=== PATIENT | male | born 1960 | race Caucasian/White ===

== ENCOUNTER 2017-06-14 09:38 | Emergency (ER) | payer OTHER ==
[~2017-06-14] VITALS: Ht 195.6 cm; Wt 168.0 kg
[~2017-06-14 09:38] MED LIST: ABILIFY5 MG OR; ALTACE5 MG PO; AMLODIPINE5 MG PO; Antidepressant; HYDRALAZINE25 MG PO; HYDROCHLOROT25 MG PO; KLOR-CON M2020 MEQ PO; LASIX 40 MG40 MG/TAB PO; LASIX40 MG PO; NORCO1 TA1 PO; OMEPRAZOLE10 MG PO; POTASSIUM CHLO10 MEQ PO; PRAVASTATIN20 MG PO; TOPAMAX50 MG PO; TOPROL XL PO; WELLBUTRIN SR150 MG PO; WELLBUTRIN150 M1 PO; XARELTO20 MG PO; ZOLOFT100 MG PO
[2017-06-14] MEDS ORDERED: ASPIRIN ADULT L81 M2 PO (09:58)
[2017-06-14] MEDS ORDERED: LOPRESSOR50 M1 PO (10:03)
[2017-06-14] MEDS ORDERED: NIFEDIPINE ER60 MG PO (10:07)
[2017-06-14] MEDS ORDERED: ALTACE5 MG PO (10:09)
[2017-06-14] MEDS ORDERED: DOXAZOSIN4 MG PO (10:10)
[2017-06-14] MEDS ORDERED: METFORMIN500 MG PO (10:12)
[2017-06-14 10:45] LABS: HEMOGLOBIN 10.2 g/dl (14.0-18.0); IMMATURE GRANULOCYTES 0.5 % (0.0-1.0); MEAN CELL VOLUME 74.2 fL CALC (80.0-100.0); MEAN CORPUSCULAR HGB 21.6 pG CALC (26.0-32.0); MEAN CORPUSCULAR HGB CONC 29.1 g/L CALC (32.0-36.0); NEUT# 4.98 thou/uL (1.82-7.42); RED BLOOD COUNT 4.72 mill/uL (4.70-6.10); RED CELL DISTRI WIDTH 17.2 % (11.5-15.5)
[2017-06-14 11:00] LABS: ALKALINE PHOSPHATASE 91 u/l (38-126); ANION GAP 16 (6-22 (CALC)); BILIRUBIN, TOTAL 0.8 mg/dL (0.0-1.4); BUN 24 mg/dL (9-20); BUN/CREATININE RATIO 24 (12-20 (CALC)); CARBON DIOXIDE 23 mmol/l (22-30); CHLORIDE 107 mmol/l (95-108); GFR > 60 ML/MIN (>=60 (CALC)); GFR FOR AFR.AMER. > 60 ML/MIN (>=60 (CALC)); GLUCOSE 117 mg/dL (75-110); POTASSIUM 3.9 mmol/l (3.5-5.1); SGOT/AST 21 u/l (17-59); SGPT/ALT 33 u/l (21-72); SODIUM 142 mmol/l (137-146); TOTAL PROTEIN 7.1 g/dL (6.3-8.2)
[2017-06-14 11:12] LABS: MYOGLOBIN 62 ng/mL (0 - 121)
[2017-06-14 11:50] VITALS: BP 163/84
== END 2017-06-14 11:45 | disposition home or self-care (01) | DRG 305 ==
LOC: ED 09:38
PROVIDERS: Emergency Medicine
DX: I10 Essential (primary) hypertension (principal); R00.1 Bradycardia, unspecified; F32.9 Major depressive disorder, single episode, unspecified; E78.5 Hyperlipidemia, unspecified; I48.91 Unspecified atrial fibrillation; F41.9 Anxiety disorder, unspecified

== ENCOUNTER 2019-03-12 06:04 | Emergency (ER) | payer OTHER ==
[~2019-03-12] VITALS: Ht 195.6 cm; Wt 166.4 kg
[~2019-03-12 06:04] MED LIST changes: +ASPIRIN ADULT L81 M2 PO; +DOXAZOSIN4 MG PO; +LOPRESSOR50 M1 PO; +METFORMIN500 MG PO; +NIFEDIPINE ER60 MG PO
[2019-03-12 07:02] LABS: HEMATOCRIT 32.3 % (39.0-50.0); HEMOGLOBIN 9.9 g/dl (14.0-18.0); IMMATURE GRANULOCYTES 0.7 % (0.0-5.0); MEAN CORPUSCULAR HGB 25.5 pG CALC (26.0-32.0); MEAN CORPUSCULAR HGB CONC 30.7 g/L CALC (32.0-36.0); NEUT# 8.79 thou/uL (1.82-7.42); RED BLOOD COUNT 3.88 mill/uL (4.70-6.10)
[2019-03-12 07:04] LABS: ALBUMIN 3.5 g/dL (3.2-5.0); ALKALINE PHOSPHATASE 74 u/l (38-126); ANION GAP 11 (6-22 (CALC)); BILIRUBIN, TOTAL 0.3 mg/dL (0.0-1.4); BUN 25 mg/dL (9-20); BUN/CREATININE RATIO 27 (12-20 (CALC)); CARBON DIOXIDE 25 mmol/l (22-30); CHLORIDE 104 mmol/l (95-108); CREATININE 0.9 mg/dL (0.7-1.3); GFR > 60 ML/MIN (>=60 (CALC)); GFR FOR AFR.AMER. > 60 ML/MIN (>=60 (CALC)); LIPASE 80 u/l (23-300); POTASSIUM 4.3 mmol/l (3.5-5.1); SGOT/AST 15 u/l (17-59); SODIUM 136 mmol/l (137-146); TOTAL PROTEIN 5.8 g/dL (6.3-8.2)
[2019-03-12] MEDS ORDERED: LABETALOL200 MG PO (07:04)
[2019-03-12 07:06] LABS: AMYLASE < 30 u/l (30-110)
[2019-03-12] MEDS ORDERED: SPIRONOLACTONE50 MG PO (07:06)
[2019-03-12] MEDS ORDERED: PLAVIX75 MG PO (07:06)
[2019-03-12 07:09] LABS: MEAN CELL VOLUME 83.2 fL CALC (80.0-100.0)
[2019-03-12 07:58] LABS: ACT PARTIAL THROMBO TIME 25.4 SECONDS (20.0-32.5); PROTHROMBIN TIME 10.3 SECONDS (9.0-12.5)
[2019-03-12] MEDS ORDERED: PROTONIX40 M2 PO (09:06)
[2019-03-12 09:47] VITALS: BP 137/75
[2019-03-13] MEDS ORDERED: PROTONIX40 M2 PO (15:18)
== END 2019-03-12 09:47 | disposition home or self-care (01) | DRG 378 ==
LOC: ED 06:04 → ED-I 08:20 → ED 09:47
PROVIDERS: Family Medicine
DX: K92.1 Melena (principal); J90 Pleural effusion, not elsewhere classified; D64.9 Anemia, unspecified; R10.11 Right upper quadrant pain; R10.31 Right lower quadrant pain; K43.9 Ventral hernia without obstruction or gangrene; I10 Essential (primary) hypertension; I48.91 Unspecified atrial fibrillation; Z79.01 Long term (current) use of anticoagulants; Z95.0 Presence of cardiac pacemaker; Z79.82 Long term (current) use of aspirin
CPT/HCPCS: S0164

== ENCOUNTER 2019-03-12 11:18 | Observation (INO) | payer OTHER ==
[~2019-03-12] VITALS: Ht 195.6 cm; Wt 166.5 kg
[2019-03-12] VITALS (9 sets, daily range): BP systolic 117–154; BP diastolic 72–85
[~2019-03-12 11:18] MED LIST changes: +LABETALOL200 MG PO; +PLAVIX75 MG PO; +PROTONIX40 M2 PO; +SPIRONOLACTONE50 MG PO
--- NOTE | 2019-03-12 11:40 | NUR ---
PT TO ROOM 268 VIA WHEELCHAIR. PT IS ALERT AND ORIENTED X3. ADMISSION ASSESSMENT COMPLETED AT THIS TIME. #20 STARTED X1 ATTEMPT TO RIGHT WRIST PT TOLERATED WELL. PT ORIENTED TO ROOM AND CALL LIGHT SYSTEM. CALL LIGHT IN REACH. WILL CONTINUE TO MONITOR.
--- NOTE | 2019-03-12 11:58 | NUR ---
RT INTO ROOM TO COMPLETE EKG
--- NOTE | 2019-03-12 12:00 | NUR ---
DR HOOD AT BEDSIDE TO DISCUSS PLAN OF CARE.
[2019-03-12 12:20] LABS: HEMATOCRIT 31.7 % (39.0-50.0); HEMOGLOBIN 9.7 g/dl (14.0-18.0)
--- NOTE | 2019-03-12 12:30 | NUR ---
PT TO OR VIA STRETCHER IN STABLE CONDITION.
--- NOTE | 2019-03-12 13:33 | NUR ---
DR JEREZ INTO SEE FAMILY IN PATIENT ROOM
--- NOTE | 2019-03-12 13:50 | NUR ---
PT RETURNED FROM OR VIA STRETCHER ACCOMAPNIED BY OR STAFF.
--- NOTE | 2019-03-12 13:55 | NUR ---
PT ASSISTED FROM STRETCHER TO BED WITH MINIMAL ASSISTANCE. FAMILY IN ROOM. LIQUIDS PROVIDED. CALL LIGHT IN REACH. WILL CONTIUE TO [facility].
--- NOTE | 2019-03-12 16:12 | NUR ---
PT RESTING IN BED WITH EYES CLOSED. AROUSES TO VERBAL STIMULI. RESP ARE EVEN AND UNLABORED. NO DISTRESS NOTED, CALL LIGHT IN REACH. WILL CONTINUE TO MONITOR.
[2019-03-12 19:11] LABS: HEMOGLOBIN 9.2 g/dl (14.0-18.0)
--- NOTE | 2019-03-12 19:58 | NUR ---
PT. SITTING UP ON BEDSIDE WITH NO RESP. DISTRESS NOTED; ASSESSMENT COMPLETED; IV SITE PATENT AND ORDERED IVF INFUSING; PT. C/O ABDOMINAL PAIN 06/13 AND MEDICATED WITH ORDEREDPRN TRAMADOL; WILL REASSESS; ICE PACK PROVIDED FOR BACK PAIN PER PT'S REQUEST; DECLINES HAVING ANYMORE BM'S POST PROCEDURE; DENIES WANTING SOCKS TO BE PLACED AT THIS TIME; ENCOURAGED TO CALL FOR ANY NEEDS; CALL LIGHT IS IN REACH; WILL CONTINUE TO MONITOR.
[2019-03-13 00:20] VITALS: BP 135/85
[2019-03-13 00:22] LABS: HEMATOCRIT 29.8 % (39.0-50.0)
--- NOTE | 2019-03-13 00:30 | NUR ---
PT. RESTING IN BED WATCHING TV; NO DISTRESS NOTED; DENIES NEEDS/PAIN. UPDATED WITH LATEST LAB RESULTS; DENIES HAVING ANY STOOLS; ENCOURAGED TO CALL FOR ANY NEEDS. CALL LIGHT IS IN REACH.
--- NOTE | 2019-03-13 03:37 | NUR ---
PT. RESTING IN BED ON LEFT SIDE WITH EYES CLOSED; RESP EVEN AND UNLABORED; CALL LIGHT IS IN REACH.
[2019-03-13 04:31] VITALS: BP 124/77
[2019-03-13 05:43] LABS: HEMATOCRIT 30.3 % (39.0-50.0); HEMOGLOBIN 9.1 g/dl (14.0-18.0); IMMATURE GRANULOCYTES 0.7 % (0.0-5.0); MEAN CELL VOLUME 84.6 fL CALC (80.0-100.0); MEAN CORPUSCULAR HGB 25.4 pG CALC (26.0-32.0); NEUT# 7.85 thou/uL (1.82-7.42); RED BLOOD COUNT 3.58 mill/uL (4.70-6.10); RED CELL DISTRI WIDTH 15.2 % (11.5-15.5)
[2019-03-13 05:59] LABS: ALBUMIN 3.2 g/dL (3.2-5.0); ALKALINE PHOSPHATASE 72 u/l (38-126); ANION GAP 10 (6-22 (CALC)); BILIRUBIN, TOTAL 0.3 mg/dL (0.0-1.4); BUN 21 mg/dL (9-20); BUN/CREATININE RATIO 24 (12-20 (CALC)); CARBON DIOXIDE 24 mmol/l (22-30); CHLORIDE 106 mmol/l (95-108); CREATININE 0.9 mg/dL (0.7-1.3); GFR > 60 ML/MIN (>=60 (CALC)); GFR FOR AFR.AMER. > 60 ML/MIN (>=60 (CALC)); LIPASE 87 u/l (23-300); POTASSIUM 4.1 mmol/l (3.5-5.1); SGOT/AST 16 u/l (17-59); SODIUM 136 mmol/l (137-146); TOTAL PROTEIN 5.3 g/dL (6.3-8.2)
[2019-03-13 06:11] LABS: AMYLASE < 30 u/l (30-110)
--- NOTE | 2019-03-13 06:16 | NUR ---
PT. SITTING UP IN BED WITH NO DISTRESS NOTED; PROVIDED WITH BROTH PER HIS REQUEST; DENIES FURTHER NEEDS; CALL LIGHT IS IN REACH.
--- NOTE | 2019-03-13 07:10 | NUR ---
PT REPORT RECIEVED FROM CHETNA WAGNER. PT RESTING. NO S/S OF DISTRESS. CALL LIGHT IN REACH. WILL CONTINUE TO MONITOR.
[2019-03-13 09:00] VITALS: BP 150/76
--- NOTE | 2019-03-13 09:00 | NUR ---
PT A/O X3. SPEECH IS CLEAR. RESP EVEN AND UNLABORED. LUNG SOUNDS CLEAR. BOWEL SOUNDS ACTIVE X4. STRONG RADIAL AND PEDAL PULSES. #20 LW LR @100. SITE APPEARS HEALTHY. PT HAS +1 EDEMA TO BLE AND SOME DISCOLORATION. ENCOURAGED ELEVATION. SKIN INTACT. PT DENIES ANY PAIN OR NEEDS. POC DISCUSSED. SAFETY PRECAUTIONS IN PLACE. CALL LIGHT IN REACH. WILL CONTINUE TO MONITOR.
[2019-03-13 11:08] VITALS: BP 127/81
[2019-03-13 11:59] LABS: HEMATOCRIT 31.4 % (39.0-50.0); HEMOGLOBIN 9.5 g/dl (14.0-18.0)
--- NOTE | 2019-03-13 12:42 | NUR ---
PT LYING IN BED. NO C/O PAIN OR NEEDS. CALL LIGHT IN REACH. WILL CONTINUE TO MONITOR.
[2019-03-13] MEDS ORDERED: PROTONIX40 M2 PO (15:18)
--- NOTE | 2019-03-13 15:26 | NUR ---
D/C INSTRUCTIONS DISCUSSED W/ PT. PT STATES UNDERSTANDING. IV REMOVED. CATHETER INTACT. TELE REMOVED. PT AWAITING VOLUNTEER TO BE TRANSORTED DOWNSTAIRS.
--- NOTE | 2019-03-13 15:31 | NUR ---
Discharge instructions given. Patient verbalizes understanding of same. Discharged in stable condition via Wheelchair to Home with *Other. All belongings sent with pt.
== END 2019-03-13 15:25 | disposition home or self-care (01) | DRG 378 ==
LOC: MS2 11:18
PROVIDERS: ADMIT Internal Medicine; ATTEND Internal Medicine Nephrology
PROC: 0DB68ZX Excision of Stomach, Via Natural or Artificial Opening Endoscopic, Diagnostic (ICD-10-PCS; principal; 2019-03-12)
DX: K25.4 Chronic or unspecified gastric ulcer with hemorrhage (principal); C85.19 Unspecified B-cell lymphoma, extranodal and solid organ sites; Z68.41 Body mass index [BMI] 40.0-44.9, adult; D64.9 Anemia, unspecified; I10 Essential (primary) hypertension; E11.9 Type 2 diabetes mellitus without complications; I48.2 Chronic atrial fibrillation; F41.9 Anxiety disorder, unspecified; E66.01 Morbid (severe) obesity due to excess calories; M19.90 Unspecified osteoarthritis, unspecified site; Z87.891 Personal history of nicotine dependence; Z79.1 Long term (current) use of non-steroidal anti-inflammatories (NSAID); Z95.0 Presence of cardiac pacemaker
CPT/HCPCS: S0164

== ENCOUNTER 2019-03-17 14:49 | Inpatient (IN) | payer OTHER ==
[~2019-03-17] VITALS: Ht 195.6 cm; Wt 167.0 kg
[2019-03-17 15:37] LABS: HEMOGLOBIN 8.7 g/dl (14.0-18.0); IMMATURE GRANULOCYTES 0.9 % (0.0-5.0); MEAN CELL VOLUME 84.5 fL CALC (80.0-100.0); MEAN CORPUSCULAR HGB 25.4 pG CALC (26.0-32.0); NEUT# 9.74 thou/uL (1.82-7.42); RED BLOOD COUNT 3.43 mill/uL (4.70-6.10); RED CELL DISTRI WIDTH 15.4 % (11.5-15.5)
[2019-03-17 15:47] LABS: ALBUMIN 3.5 g/dL (3.2-5.0); ALKALINE PHOSPHATASE 79 u/l (38-126); ANION GAP 14 (6-22 (CALC)); BILIRUBIN, TOTAL 0.3 mg/dL (0.0-1.4); BUN 28 mg/dL (9-20); BUN/CREATININE RATIO 26 (12-20 (CALC)); CARBON DIOXIDE 21 mmol/l (22-30); CHLORIDE 107 mmol/l (95-108); CREATININE 1.1 mg/dL (0.7-1.3); GFR > 60 ML/MIN (>=60 (CALC)); GFR FOR AFR.AMER. > 60 ML/MIN (>=60 (CALC)); POTASSIUM 4.3 mmol/l (3.5-5.1); SGOT/AST 17 u/l (17-59); SODIUM 139 mmol/l (137-146); TOTAL PROTEIN 5.9 g/dL (6.3-8.2)
[2019-03-17 19:23] VITALS: BP 135/75
[2019-03-17 20:12] VITALS: BP 135/75
[2019-03-18] VITALS (11 sets, daily range): BP systolic 119–143; BP diastolic 68–75
[2019-03-18 08:14] LABS: HEMATOCRIT 25.9 % (39.0-50.0); HEMOGLOBIN 7.7 g/dl (14.0-18.0); MEAN CELL VOLUME 84.9 fL CALC (80.0-100.0); MEAN CORPUSCULAR HGB 25.2 pG CALC (26.0-32.0); MEAN CORPUSCULAR HGB CONC 29.7 g/L CALC (32.0-36.0); RED BLOOD COUNT 3.05 mill/uL (4.70-6.10); RED CELL DISTRI WIDTH 15.4 % (11.5-15.5)
[2019-03-18 08:26] LABS: ANION GAP 12 (6-22 (CALC)); BUN 28 mg/dL (9-20); BUN/CREATININE RATIO 32 (12-20 (CALC)); CARBON DIOXIDE 21 mmol/l (22-30); CHLORIDE 110 mmol/l (95-108); CREATININE 0.9 mg/dL (0.7-1.3); GFR > 60 ML/MIN (>=60 (CALC)); GFR FOR AFR.AMER. > 60 ML/MIN (>=60 (CALC)); SODIUM 139 mmol/l (137-146)
== END 2019-03-19 00:15 | disposition short-term general hospital (02) | DRG 841 ==
LOC: ED 14:49 → ED-I 16:35 → ED 17:43 → MS2 17:44
PROVIDERS: Emergency Medicine; ADMIT Internal Medicine; ATTEND Internal Medicine
PROC: 30233N1 Transfusion of Nonautologous Red Blood Cells into Peripheral Vein, Percutaneous Approach (ICD-10-PCS; principal; 2019-03-18)
PROC: 30233N1 Transfusion of Nonautologous Red Blood Cells into Peripheral Vein, Percutaneous Approach (ICD-10-PCS; 2019-03-18)
DX: C85.19 Unspecified B-cell lymphoma, extranodal and solid organ sites (principal); K92.2 Gastrointestinal hemorrhage, unspecified; D62 Acute posthemorrhagic anemia; Z68.41 Body mass index [BMI] 40.0-44.9, adult; I10 Essential (primary) hypertension; E11.9 Type 2 diabetes mellitus without complications; I48.91 Unspecified atrial fibrillation; F41.9 Anxiety disorder, unspecified; K25.9 Gastric ulcer, unspecified as acute or chronic, without hemorrhage or perforation; E66.01 Morbid (severe) obesity due to excess calories; Z95.0 Presence of cardiac pacemaker; Z87.891 Personal history of nicotine dependence
CPT/HCPCS: P9016; S0164

== ENCOUNTER 2019-03-31 12:42 | Emergency (ER) | payer OTHER ==
[~2019-03-31] VITALS: Ht 195.6 cm; Wt 156.0 kg
[2019-03-31 13:13] LABS: HEMATOCRIT 28.3 % (39.0-50.0); HEMOGLOBIN 8.4 g/dl (14.0-18.0); IMMATURE GRANULOCYTES 2.7 % (0.0-5.0); MEAN CELL VOLUME 90.1 fL CALC (80.0-100.0); MEAN CORPUSCULAR HGB 26.8 pG CALC (26.0-32.0); MEAN CORPUSCULAR HGB CONC 29.7 g/L CALC (32.0-36.0); NEUT# 12.44 thou/uL (1.82-7.42); RED BLOOD COUNT 3.14 mill/uL (4.70-6.10); RED CELL DISTRI WIDTH 19.2 % (11.5-15.5)
[2019-03-31 13:29] LABS: ALBUMIN 3.1 g/dL (3.2-5.0); ALKALINE PHOSPHATASE 68 u/l (38-126); BILIRUBIN, TOTAL 0.4 mg/dL (0.0-1.4); BUN 41 mg/dL (9-20); BUN/CREATININE RATIO 32 (12-20 (CALC)); CARBON DIOXIDE 20 mmol/l (22-30); CHLORIDE 107 mmol/l (95-108); CREATININE 1.3 mg/dL (0.7-1.3); GFR 57 ML/MIN (>=60 (CALC)); GFR FOR AFR.AMER. > 60 ML/MIN (>=60 (CALC)); SODIUM 138 mmol/l (137-146); TOTAL PROTEIN 5.3 g/dL (6.3-8.2)
[2019-03-31 13:31] LABS: ANION GAP 16 (6-22 (CALC)); POTASSIUM 5.1 mmol/l (3.5-5.1); SGOT/AST 30 u/l (17-59)
[2019-03-31 15:46] VITALS: BP 107/51
== END 2019-03-31 15:46 | disposition short-term general hospital (02) | DRG 682 ==
LOC: ED 12:42
PROVIDERS: Emergency Medicine
DX: N17.9 Acute kidney failure, unspecified (principal); J18.9 Pneumonia, unspecified organism; J90 Pleural effusion, not elsewhere classified; E87.2 Acidosis; D64.9 Anemia, unspecified; B95.7 Other staphylococcus as the cause of diseases classified elsewhere; I10 Essential (primary) hypertension; R10.84 Generalized abdominal pain; R53.1 Weakness; R06.02 Shortness of breath; Z95.0 Presence of cardiac pacemaker; E11.9 Type 2 diabetes mellitus without complications; Z79.84 Long term (current) use of oral hypoglycemic drugs